=== PATIENT | male | born 2000 | race Hispanic/Latino ===

== ENCOUNTER 2023-01-13 02:05 | Emergency (ER) | payer MEDICAID ==
[~2023-01-13] VITALS: Ht 165.1 cm; Wt 59.0 kg
[2023-01-13 02:37] VITALS: BP 124/68; PULSE 64; RESP 18; O2SAT 98
[2023-01-13] MEDS ORDERED: METH4TAB3 PO (02:47)
[2023-01-13] MEDS ORDERED: SOLU-MEDROL 125MG VIAL IM ONE (03:00)
== END 2023-01-13 03:01 | disposition home or self-care (01) ==
LOC: EDH 02:05
DX: S29.011A Strain of muscle and tendon of front wall of thorax, initial encounter (principal); X58.XXXA Exposure to other specified factors, initial encounter; Y93.89 Activity, other specified; Y92.89 Other specified places as the place of occurrence of the external cause; Y99.8 Other external cause status
CPT/HCPCS: 99283; 96372; J2930